=== PATIENT | female | born 1950 | race Caucasian/White ===

== ENCOUNTER 2021-01-03 16:31 | Emergency (ER) | payer BC, MEDICARE, OTHER ==
[2021-01-03 17:04] LABS: EOSINOPHILS % (AUTO) 0.2 %; HCT - HEMATOCRIT 30.5 % (37.0-47.0); HGB - HEMOGLOBIN 10.1 g/dL (12.0-16.0); LYMPHOCYTES # (AUTO) 0.7 10^3/uL (1.5-3.5); LYMPHOCYTES % (AUTO) 11.2 %; MEAN CORPUSCULAR HGB CONC 33.1 g/dL (32.0-36.0); MEAN CORPUSCULAR VOLUME 81.6 fL (81.0-99.0); MEAN PLATELET VOLUME 11.7 fL (7.9-10.8); MONOCYTES # (AUTO) 0.6 10^3/uL (0.0-1.0); NEUTROPHILS # (AUTO) 4.8 10^3/uL (1.5-6.6); NEUTROPHILS % (AUTO) 78.1 %; PLT - PLATELET COUNT 126 10^3/uL (130-450); RED BLOOD COUNT 3.74 10^6/uL (4.20-5.40); RED CELL DISTRIBUTION WIDTH 15.6 % (12.0-15.0); WHITE BLOOD COUNT 6.1 x10^3/uL (4.8-10.8)
[2021-01-03 17:18] LABS: ALBUMIN 3.7 g/dL (3.2-5.5); ALBUMIN/GLOBULIN RATIO 1.1 (1.0-2.2); BILIRUBIN,TOTAL 0.7 mg/dL (0.2-1.0); CALCIUM 8.8 mg/dL (8.5-10.3); CREATININE 1.1 mg/dL (0.4-1.0); POTASSIUM 4.8 mmol/L (3.5-5.0); TOTAL PROTEIN 7.2 g/dL (6.7-8.2)
[2021-01-03 18:43] LABS: BILIRUBIN,URINE NEGATIVE (NEGATIVE); GLUCOSE, URINE (UA) NEGATIVE (NEGATIVE); KETONES,URINE (UA) NEGATIVE (NEGATIVE); LEUKOCYTE ESTERASE, URINE LARGE (NEGATIVE); NITRITE,URINE POSITIVE (NEGATIVE); OCCULT BLOOD,URINE SMALL (NEGATIVE); PROTEIN,URINE TRACE mg/dL (NEGATIVE); UROBILINOGEN,URINE 0.2 (NORMAL) E.U./dL (NORMAL)
[2021-01-03 18:51] LABS: CLARITY,URINE SL. CLOUDY (CLEAR)
[2021-01-03 18:54] LABS: RBC,URINE 0-5 /HPF (0-5); SQUAMOUS EPITHELIAL CELL,UR RARE Squamous (<= Few); WBC,URINE >25 /HPF (0-5)
[2021-01-03 18:55] LABS: BACTERIA,URINE Moderate /HPF (None Seen)
[2021-01-03] MEDS ORDERED: LIDOCAINE 1% 2 ML VIAL MC ONE (19:04)
[2021-01-03] MEDS ORDERED: cefTRIAXone 1 GM VIAL IM STA (19:04)
--- NOTE | 2021-01-03 19:05 | ED Physician Documentation ---
PD HPI ABD PAIN - Stated complaint Stated Complaint: FEVER/FEMALE - Chief complaint Chief Complaint: Abd Pain - History obtained from History obtained from: Patient (This is a helen 70-year-old woman with history of peripheral vascular disease who started running fevers up to 102 starting 2 days ago with a T-max today. She also has urinary burning and frequency. No flank pain though.) Review of Systems Constitutional: reports: Reviewed and negative Eyes: reports: Reviewed and negative Ears: reports: Reviewed and negative Nose: reports: Reviewed and negative PD PAST MEDICAL HISTORY - Past Surgical History Ortho: Amputation Cardiovascular: Coronary stent - Present Medications Home Medications: Ambulatory Orders Medication Instructions Recorded Confirmed Aspirin 81 mg PO DAILY 02/10/19 01/03/21 Atorvastatin Calcium 80 mg PO DAILY 02/10/19 01/03/21 Cholecalciferol (Vitamin D3) 1,000 unit PO DAILY 02/10/19 01/03/21 [Vitamin D3] Fluticasone/Salmeterol [Advair 1 each IH DAILY 02/10/19 01/03/21 250-50 Diskus] Ipratropium/Albuterol [Combivent 20 - 100 mcg IH 1-2XD PRN 02/10/19 01/03/21 Respimat] Melatonin/Pyridoxine [Melatonin 5 5 mg ORAL DAILY PRN MDD 5 02/10/19 01/03/21 mg Tablet] Metoclopramide [Reglan] 5 mg PO DAILY PM 02/10/19 01/03/21 Montelukast [Singulair] 10 mg PO QPM 02/10/19 01/03/21 Multivitamin [Multivitamins] 1 each PO DAILY 02/10/19 01/03/21 Olmesartan Medoxomil 40 mg PO DAILY 02/10/19 01/03/21 [place]-3/Dha/Epa/Fish Oil [Fish Oil 1 each PO DAILY 02/10/19 01/03/21 1,000 mg Softgel] Omeprazole 20 mg PO DAILY 02/10/19 01/03/21 Pregabalin [Lyrica] 200 mg PO BID 02/10/19 01/03/21 Sertraline [Zoloft] 75 mg PO DAILY 02/10/19 01/03/21 amLODIPine [Norvasc] 5 mg PO DAILY 02/10/19 01/03/21 Ciprofloxacin HCl [Cipro] 500 mg PO BID #20 tablet 01/03/21 Sildenafil Citrate [Sildenafil] 20 mg PO TID 01/03/21 01/03/21 - Allergies Allergies/Adverse Reactions: Allergies Allergy/AdvReac Type Severity Reaction Status Date / Time codeine AdvReac Nausea Verified 01/03/21 16:40 - Social History Smoking Status: Never smoker PD ED PE NORMAL - Vitals Vital signs reviewed: Yes - General General: Alert and oriented X 3, No acute distress - Respiratory Respiratory: No respiratory distress, Clear bilaterally - Abdomen Abdomen: Soft, Non tender - Back Back: No CVA TTP - Extremities Extremities: Other (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) - Neuro Neuro: Alert and oriented X 3, Normal speech Results - Vitals Vitals: Vital Signs - 24 hr 01/03/21 01/03/21 01/03/21 16:41 18:44 19:45 Temperature 37.2 C 37.0 C 37.0 C Heart Rate 96 70 74 Respiratory 18 16 14 Rate Blood Pressure 142/53 H 139/56 H 135/69 H O2 Saturation 97 97 97 Oxygen O2 Source Room air - Labs Labs: Laboratory Tests 01/03/21 01/03/21 01/03/21 16:56 16:56 18:31 WBC 6.1 RBC 3.74 L Hgb 10.1 L Hct 30.5 L MCV 81.6 MCH 27.0 MCHC 33.1 RDW 15.6 H Plt Count 126 L MPV 11.7 H Neut # (Auto) 4.8 Lymph # (Auto) 0.7 L Potter # (Auto) 0.6 Eos # (Auto) 0.0 Baso # (Auto) 0.0 Absolute Nucleated RBC 0.00 Nucleated RBC % 0.0 Sodium 128 L Potassium 4.8 Chloride 95 L Carbon Dioxide 23 Anion Gap 10.0 BUN 38 H Creatinine 1.1 H Estimated GFR (MDRD) 49 L Glucose 113 H Calcium 8.8 Total Bilirubin 0.7 AST 21 ALT 24 Alkaline Phosphatase 122 H Total Protein 7.2 Albumin 3.7 Globulin 3.5 Albumin/Globulin Ratio 1.1 Lipase 56 H Urine Color YELLOW Urine Clarity SL. CLOUDY Urine pH 6.0 Ur Specific [place] 1.015 Urine Protein TRACE Urine Glucose (UA) NEGATIVE Urine Ketones NEGATIVE Urine Occult Blood SMALL H Urine Nitrite POSITIVE H Urine Bilirubin NEGATIVE Urine Urobilinogen 0.2 (NORMAL) Ur Leukocyte Esterase LARGE H Urine RBC 0-5 Urine WBC >25 H Ur Squamous Epith Cells RARE Squamous Urine Bacteria Moderate H Ur Microscopic Review INDICATED Urine Culture Comments INDICATED PD MEDICAL DECISION MAKING - ED course ED course: 70-year-old woman presents with urinary symptoms and fever at home. This is concerning for pyelonephritis. Her blood work is reassuring. She is treated with Rocephin here. Departure - Departure Disposition: Home, Self Care Clinical Impression: Pyelonephritis Condition: Good Record reviewed to determine appropriate education?: Yes Instructions: ED Kidney Infec Female Prescriptions: Ciprofloxacin HCl [Cipro] 500 mg PO BID #20 tablet Comments: We will culture your urine, the results should be done in 48-72 hours. If an antibiotic change is necessary we will call you. Return if worse in the meantime, especially if you develop increasing flank pain, fevers, or cannot keep down the medication. Follow-up with your primary care physician in 3 to 5 days for recheck. Discharge Date/Time: 01/03/21 19:45
[2021-01-03 19:50] VITALS: BP 135/69
== END 2021-01-03 19:45 | disposition home or self-care (01) ==
LOC: ED 16:31
DX: N12 Tubulo-interstitial nephritis, not specified as acute or chronic (principal)
CPT/HCPCS: 36415; 80053; 81001; 81003; 83690; 85025; 87086; 87181; 96372; 99283; 99284

== ENCOUNTER 2021-01-17 10:20 | Outpatient (CLI) | payer BC, MEDICARE, OTHER | END 2021-01-17 10:21 | disposition home or self-care (01) | LOC: LAB.N 10:20 | PROVIDERS: ATTEND Internal Medicine | DX: R93.5 Abnormal findings on diagnostic imaging of other abdominal regions, including retroperitoneum (principal); R74.8 Abnormal levels of other serum enzymes; R13.14 Dysphagia, pharyngoesophageal phase; D50.9 Iron deficiency anemia, unspecified; Z53.9 Procedure and treatment not carried out, unspecified reason ==

== ENCOUNTER 2021-01-18 11:00 | Outpatient (CLI) | payer BC, MEDICARE, OTHER ==
[2021-01-18 11:28] LABS: BASOPHILS % (AUTO) 0.2 %; EOSINOPHILS # (AUTO) 0.1 10^3/uL (0.0-0.7); EOSINOPHILS % (AUTO) 1.8 %; HCT - HEMATOCRIT 33.1 % (37.0-47.0); HGB - HEMOGLOBIN 10.5 g/dL (12.0-16.0); LYMPHOCYTES # (AUTO) 0.8 10^3/uL (1.5-3.5); LYMPHOCYTES % (AUTO) 19.2 %; MEAN CORPUSCULAR HEMOGLOBIN 25.9 pg (27.0-31.0); MEAN CORPUSCULAR HGB CONC 31.7 g/dL (32.0-36.0); MEAN CORPUSCULAR VOLUME 81.7 fL (81.0-99.0); MEAN PLATELET VOLUME 11.9 fL (7.9-10.8); MONOCYTES # (AUTO) 0.4 10^3/uL (0.0-1.0); MONOCYTES % (AUTO) 8.7 %; NEUTROPHILS # (AUTO) 3.1 10^3/uL (1.5-6.6); NEUTROPHILS % (AUTO) 69.9 %; PLT - PLATELET COUNT 170 10^3/uL (130-450); RED BLOOD COUNT 4.05 10^6/uL (4.20-5.40); RED CELL DISTRIBUTION WIDTH 15.4 % (12.0-15.0); WHITE BLOOD COUNT 4.4 x10^3/uL (4.8-10.8)
[2021-01-18 11:48] LABS: ALBUMIN 3.9 g/dL (3.2-5.5); ALBUMIN/GLOBULIN RATIO 1.1 (1.0-2.2); BILIRUBIN,TOTAL 0.6 mg/dL (0.2-1.0); CALCIUM 9.1 mg/dL (8.5-10.3); CREATININE 0.7 mg/dL (0.4-1.0); POTASSIUM 4.3 mmol/L (3.5-5.0); TOTAL PROTEIN 7.6 g/dL (6.7-8.2)
== END 2021-01-18 11:01 | disposition home or self-care (01) ==
LOC: LAB 11:00
PROVIDERS: ATTEND Student in an Organized Health Care Education/Training Program
DX: R93.5 Abnormal findings on diagnostic imaging of other abdominal regions, including retroperitoneum (principal); R74.8 Abnormal levels of other serum enzymes; R13.14 Dysphagia, pharyngoesophageal phase; D50.9 Iron deficiency anemia, unspecified
CPT/HCPCS: 36415; 80053; 82728; 83540; 84466; 85025

== ENCOUNTER 2021-01-18 11:08 | Outpatient (CLI) | payer BC, MEDICARE, OTHER ==
[2021-01-18] MEDS ORDERED: IOVERSOL 320 50 ML VIAL ONE (11:14)
[2021-01-18] MEDS ORDERED: IOPAMIDOL-300 100 ML VIAL ONE (11:14)
--- NOTE | 2021-01-18 19:28 | CT Report ---
PROCEDURE: Abdomen/Pelvis W INDICATIONS: ABN US, GB MASS VS SLUDGE CONTRAST: IV CONTRAST: Isovue 300 ml: 100 PO CONTRAST: Optiray 320 ml50 TECHNIQUE: After the administration of oral and IV contrast, 5 mm thick sections acquired from the diaphragms to the symphysis. 5 mm thick coronal and sagittal reformats were acquired. For radiation dose reducti on, the following was used: automated exposure control, adjustment of mA and/or kV according to loretta ent size. COMPARISON: None. FINDINGS: Image quality: Excellent. ABDOMEN: Lung bases: Lung bases are clear. Heart size is normal. There is a small to moderate hiatal hernia . Solid organs: Liver and spleen are normal in size and enhancement. An accessory splenule is incide ntally noted along the hilum of the primary spleen. Gallbladder demonstrates a dependent gallstone, as on series 3 image 28. The anterior gallbladder wall appears mildly thickened, as on series 3 jeb ge 29. Biliary system is non dilated. Pancreas enhances normally. No adrenal nodules. Kidneys demo nstrate normal size and enhancement, without hydronephrosis. Peritoneum and bowel: Bowel loops demonstrate normal wall thickness and caliber. No free fluid or a ir. There is a moderate amount of stool seen within the colon. Nodes and vessels: No retroperitoneal or mesenteric adenopathy by size criteria. Aorta and inferior vena cava are normal in size. Dense atherosclerotic calcification can be seen. Miscellaneous: No ventral hernias. PELVIS: Genitourinary: Bladder wall thickness is normal. The uterus is atrophic. No adnexal masses are seen on either side. Miscellaneous: No inguinal hernias or adenopathy. Bones: No suspicious bony lesions. Moderate dextroconvex scoliosis is seen. No vertebral body compre ssion fractures. There is focal L5-S1 degenerative change. Milder degenerative changes are seen else where. IMPRESSION: The ultrasound referred to in the requisition is not available for review at the time of this dictation. There is at least one dependently layering gallstone seen within the gallbladder. The inferior gallbl adder wall appears mildly thickened. There is a moderate amount of stool seen within the colon. Please correlate with clinical constipatio n. Incidental note is made of: Small to moderate hiatal hernia Accessory splenule Moderate dextroconvex scoliosis Focal L5-S1 degenerative change Reviewed by: Ranjan Avendaño MD on 01/18/2021 6:27 PM AKDT Approved by: Ranjan Avendaño MD on 01/18/2021 6:27 PM RAFI Station ID: [id number]
[2021-01-18] MEDS ORDERED: IOPAMIDOL-300 100 ML VIAL IVP ONE (19:29)
[2021-01-18] MEDS ORDERED: IOVERSOL 320 50 ML VIAL PO ONE (19:30)
== END 2021-01-18 11:09 | disposition home or self-care (01) ==
LOC: DI 11:08
PROVIDERS: ATTEND Student in an Organized Health Care Education/Training Program
DX: K80.20 Calculus of gallbladder without cholecystitis without obstruction (principal); R93.5 Abnormal findings on diagnostic imaging of other abdominal regions, including retroperitoneum; R74.8 Abnormal levels of other serum enzymes; R13.14 Dysphagia, pharyngoesophageal phase; D50.9 Iron deficiency anemia, unspecified
CPT/HCPCS: 36415; 74177; 80053; 82728; 83540; 84466; 85025; Q9967

== ENCOUNTER 2021-08-15 09:44 | Outpatient (CLI) | payer BC, MEDICARE, OTHER ==
[2021-08-15 10:24] LABS: ALBUMIN 3.8 g/dL (3.2-5.5); BILIRUBIN,DIRECT 0.1 mg/dL (0.1-0.5); BILIRUBIN,TOTAL 0.9 mg/dL (0.2-1.0); TOTAL PROTEIN 7.4 g/dL (6.7-8.2)
== END 2021-08-15 09:45 | disposition home or self-care (01) ==
LOC: LAB 09:44
PROVIDERS: ATTEND Student in an Organized Health Care Education/Training Program
DX: R74.8 Abnormal levels of other serum enzymes (principal)
CPT/HCPCS: 36415; 80076

== ENCOUNTER 2021-11-03 09:49 | Outpatient (CLI) | payer BC, MEDICARE, OTHER ==
[2021-11-03 10:30] LABS: ALBUMIN 3.8 g/dL (3.2-5.5); BILIRUBIN,DIRECT 0.1 mg/dL (0.1-0.5); BILIRUBIN,TOTAL 0.6 mg/dL (0.2-1.0); TOTAL PROTEIN 7.3 g/dL (6.7-8.2)
== END 2021-11-03 09:50 | disposition home or self-care (01) ==
LOC: LAB 09:49
PROVIDERS: ATTEND Student in an Organized Health Care Education/Training Program
DX: K74.3 Primary biliary cirrhosis (principal); R93.5 Abnormal findings on diagnostic imaging of other abdominal regions, including retroperitoneum; R74.8 Abnormal levels of other serum enzymes
CPT/HCPCS: 36415; 80076; 83516

== ENCOUNTER 2021-12-30 09:07 | Outpatient (CLI) | payer BC, MEDICARE, OTHER ==
[2021-12-30 09:42] LABS: ALBUMIN 3.6 g/dL (3.2-5.5); BILIRUBIN,TOTAL 0.6 mg/dL (0.2-1.0); CALCIUM 9.3 mg/dL (8.5-10.3); CREATININE 0.9 mg/dL (0.4-1.0); POTASSIUM 4.1 mmol/L (3.5-5.0); TOTAL PROTEIN 7.3 g/dL (6.7-8.2)
== END 2021-12-30 09:08 | disposition home or self-care (01) ==
LOC: LAB 09:07
PROVIDERS: ATTEND Family Medicine
DX: L08.9 Local infection of the skin and subcutaneous tissue, unspecified (principal)
CPT/HCPCS: 36415; 80053; 85651; 86140

== ENCOUNTER 2023-04-21 09:31 | Outpatient (CLI) | payer BC, MEDICARE, OTHER ==
[2023-04-21 11:45] LABS: BILIRUBIN,URINE NEGATIVE (NEGATIVE); GLUCOSE, URINE (UA) NEGATIVE (NEGATIVE); KETONES,URINE (UA) NEGATIVE (NEGATIVE); LEUKOCYTE ESTERASE, URINE NEGATIVE (NEGATIVE); NITRITE,URINE NEGATIVE (NEGATIVE); OCCULT BLOOD,URINE SMALL (NEGATIVE); PH,URINE 5.5 PH (5.0-7.5); PROTEIN,URINE NEGATIVE (NEGATIVE); UROBILINOGEN,URINE 0.2 (NORMAL) E.U./dL (NORMAL)
[2023-04-21 11:46] LABS: EOSINOPHILS # (AUTO) 0.1 10^3/uL (0.0-0.7); EOSINOPHILS % (AUTO) 2.1 %; HCT - HEMATOCRIT 32.2 % (37.0-47.0); HGB - HEMOGLOBIN 10.1 g/dL (12.0-16.0); LYMPHOCYTES # (AUTO) 0.8 10^3/uL (1.5-3.5); LYMPHOCYTES % (AUTO) 22.8 %; MEAN CORPUSCULAR HGB CONC 31.4 g/dL (32.0-36.0); MEAN PLATELET VOLUME 11.8 fL (7.9-10.8); MONOCYTES # (AUTO) 0.3 10^3/uL (0.0-1.0); MONOCYTES % (AUTO) 8.7 %; NEUTROPHILS # (AUTO) 2.2 10^3/uL (1.5-6.6); NEUTROPHILS % (AUTO) 66.1 %; PLT - PLATELET COUNT 113 10^3/uL (130-450); RED BLOOD COUNT 3.88 10^6/uL (4.20-5.40); RED CELL DISTRIBUTION WIDTH 16.6 % (12.0-15.0); WHITE BLOOD COUNT 3.3 x10^3/uL (4.8-10.8)
[2023-04-21 11:55] LABS: BACTERIA,URINE Few /HPF (None Seen); CLARITY,URINE CLEAR (CLEAR); RBC,URINE 0-5 /HPF (0-5); SQUAMOUS EPITHELIAL CELL,UR FEW Squamous (<= Few); WBC,URINE 0-3 /HPF (0-5)
[2023-04-21 12:07] LABS: ALBUMIN/GLOBULIN RATIO 1.3 (1.0-2.2); BILIRUBIN,TOTAL 0.4 mg/dL (0.2-1.0); CALCIUM 9.4 mg/dL (8.5-10.3); CRP - C-REACTIVE PROTEIN 0.8 mg/dL (<0.5); POTASSIUM 4.2 mmol/L (3.5-4.5)
[2023-04-21 12:13] LABS: THYROID STIMULATING HORMONE 2.58 uIU/mL (0.34-5.60)
== END 2023-04-21 09:32 | disposition home or self-care (01) ==
LOC: LAB.N 09:31
PROVIDERS: ATTEND Internal Medicine Rheumatology
DX: M34.1 CR(E)ST syndrome (principal); D61.818 Other pancytopenia
CPT/HCPCS: 36415; 80053; 81001; 84443; 85025; 85651; 86140; 87086

== ENCOUNTER 2023-05-11 08:00 | Outpatient (CLI) | payer BC, MEDICARE, OTHER | END 2023-05-11 23:59 | disposition home or self-care (01) | LOC: LAB.N 08:00 | PROVIDERS: ATTEND Physician Assistant Medical | DX: L03.115 Cellulitis of right lower limb (principal) | CPT/HCPCS: 87070; 87205 ==

== ENCOUNTER 2023-07-08 14:26 | Outpatient (CLI) | payer BC, MEDICARE, OTHER ==
[2023-07-08 15:04] LABS: THYROID STIMULATING HORMONE 1.53 uIU/mL (0.34-5.60)
[2023-07-08 15:17] LABS: ALBUMIN/GLOBULIN RATIO 1.3 (1.0-2.2); ALKALINE PHOSPHATASE 80 IU/L (42-121); ALT ALANINE AMINOTRANSFERASE 12 IU/L (10-60); AST ASPARTATE AMINOTRANSFERASE 17 IU/L (10-42); BILIRUBIN,TOTAL 0.5 mg/dL (0.2-1.0); BUN - BLOOD UREA NITROGEN 20 mg/dL (6-20); CALCIUM 9.2 mg/dL (8.5-10.3); CARBON DIOXIDE - CO2 26 mmol/L (21-32); CHLORIDE 102 mmol/L (101-111); CHOL/HDL RATIO 2.9 (<4.4); CHOLESTEROL 139 mg/dL; GFR - MDRD 55 (>89); GLUCOSE 84 mg/dL (74-104); HDL CHOLESTEROL 48 mg/dL; LDL CHOLESTEROL,CALCULATED 70 mg/dL; LDL/HDL RATIO 1.5 (<4.4); POTASSIUM 4.3 mmol/L (3.5-4.5); SODIUM 135 mmol/L (135-145); TOTAL PROTEIN 7.1 g/dL (6.4-8.9); TRIGLYCERIDES 104 mg/dL (48-352); VLDL CHOLESTEROL 21 mg/dL
== END 2023-07-08 14:27 | disposition home or self-care (01) ==
LOC: LAB 14:26
PROVIDERS: ATTEND Physician Assistant
DX: E78.2 Mixed hyperlipidemia (principal); R79.89 Other specified abnormal findings of blood chemistry; D50.8 Other iron deficiency anemias; A41.9 Sepsis, unspecified organism
CPT/HCPCS: 36415; 80053; 80061; 82306; 83721; 84443

== ENCOUNTER 2023-10-20 10:55 | Emergency (ER) | payer BC, MEDICARE, OTHER ==
[2023-10-20 11:10] VITALS: BP 149/66; O2SAT 98
--- NOTE | 2023-10-20 11:37 | ED Physician Documentation ---
PD HPI OPHTHO - Stated complaint Stated Complaint: BILAT EYE OOZING/PX - Chief complaint Chief Complaint: Heent - History obtained from History obtained from: Patient - History of Present Illness Timing - onset: How many weeks ago (2.5) Timing - duration: Weeks Timing - details: Gradual onset, Still present (had itching and watering of eyes that has persisted with matting and some discharge. No visual changes. Eyes irritated for prolonged use and outdoors. [facility]en [facility] and Rx Polymixin antibiotic drops. Has been using them a week without any notable improvement and now worse the past 1-2 days.) Location: Both (initially left and then right as well within day or so.) Associated symptoms: Redness, Discharge, Matting, Other (having now nasal congestion and feeling of sinus pressure with drainage that is yellow.). No: Decreased vision Contributing factors: No: Exposed to conjunctivitis Similar symptoms before: Has not had sx before Recently seen: Clinic Review of Systems Constitutional: denies: Fever, Chills Nose: reports: Congestion, Sinus pressure / pain (the past several days) Throat: denies: Sore throat Respiratory: denies: Cough PD PAST MEDICAL HISTORY - Past Medical History Cardiovascular: Hypertension, High cholesterol, Coronary artery disease Respiratory: Asthma GI: GERD - Past Surgical History Past Surgical History: Yes General: Appendectomy Ortho: Amputation Cardiovascular: Coronary stent - Present Medications Home Medications: Ambulatory Orders Medication Instructions Recorded Confirmed Aspirin 81 mg PO DAILY 02/10/19 10/20/23 Cholecalciferol (Vitamin D3) 1,000 unit PO DAILY 02/10/19 10/20/23 [Vitamin D3] Ipratropium/Albuterol [Combivent 20 - 100 mcg IH 1-2XD PRN 02/10/19 10/20/23 Respimat] Melatonin/Pyridoxine [Melatonin 5 5 mg ORAL DAILY PRN MDD 5 02/10/19 10/20/23 mg Tablet] Metoclopramide [Reglan] 5 mg PO DAILY PM 02/10/19 10/20/23 Montelukast [Singulair] 10 mg PO QPM 02/10/19 10/20/23 Multivitamin [Multivitamins] 1 each PO DAILY 02/10/19 10/20/23 Omeprazole 20 mg PO DAILY 02/10/19 10/20/23 Pregabalin [Lyrica] 200 mg PO BID 02/10/19 10/20/23 Sertraline [Zoloft] 75 mg PO DAILY 02/10/19 10/20/23 amLODIPine [Norvasc] 5 mg PO DAILY 02/10/19 10/20/23 Sildenafil Citrate [Sildenafil] 20 mg PO BID 01/03/21 10/20/23 Acetaminophen [Aphen] 325 mg PO Q6HR PRN 12/07/22 10/20/23 Atorvastatin [Lipitor] 20 mg PO QPM 08/19/23 10/20/23 Budesonide/Formoterol Fumarate 1 - 2 puffs INH DAILY 08/19/23 10/20/23 [Symbicort 160-4.5 Mcg Inhaler] Olmesartan Medoxomil [Benicar] 1 tab PO DAILY 08/19/23 10/20/23 Zinc Gluconate [Zinc] 30 mg PO DAILY 08/19/23 10/20/23 Amoxicillin 500 mg PO TID #15 cap 10/20/23 Ketotifen Fumarate [Eye Itch 2 drops RIGHTEYE QID PRN #5 ml 10/20/23 Relief] Tobramycin/Dexamethasone [Tobradex 2 drops EACHEYE QID 5 Days #10 ml 10/20/23 Eye Drops] - Allergies Allergies/Adverse Reactions: Allergies Allergy/AdvReac Type Severity Reaction Status Date / Time codeine AdvReac Nausea Verified 10/20/23 11:07 - Social History Does the pt smoke?: No Smoking Status: Never smoker Does the pt have substance abuse?: No PD ED PE NORMAL - Vitals Vital signs reviewed: Yes - General General: Alert and oriented X 3, No acute distress, Well developed/nourished - HEENT HEENT: PERRL, EOMI, Ears normal, Pharynx benign - Neck Neck: Supple, no meningeal sign, No adenopathy PD ED PE EXPANDED - Eyes Eyes: Injected conj/sclera, Exudate (some thicker materail along eyelashes and lid margins. ), Anterior chambers clear, Normal fundi, Other (feels better with proparacaine drops here in ED. ). No: Corneal ulcer, Fluorescein uptake Results - Vitals Vitals: Oxygen O2 Source Room air PD Medical Decision Making - ED course Complexity details: considered differential (persistent conjunctival irritation and matting, increasing despite Polymixin drops from [facility]. Pt to me states allergy to Bactrim, not listed on Email [employer]. Consider some persisting irritation from drops. But now also sinusitis symptoms. Will change drops and add antihistamine. Abx orally for sinus.), d/w patient Departure - Departure Disposition: 01 Home, Self Care Clinical Impression: Conjunctivitis, acute, bilateral Qualifiers: Acute conjunctivitis type: unspecified Qualified Code(s): H10.33 - Unspecified acute conjunctivitis, bilateral Sinusitis Qualifiers: Sinusitis location: maxillary Chronicity: acute Recurrence: non-recurrent Qualified Code(s): J01.00 - Acute maxillary sinusitis, unspecified Condition: Stable Record reviewed to determine appropriate education?: Yes Instructions: ED Conjunctivitis Nonspecific Follow-Up: Mary Jane Rankin PA-C [Primary Care Provider] - Prescriptions: Amoxicillin 500 mg PO TID #15 cap Ketotifen Fumarate [Eye Itch Relief] 2 drops RIGHTEYE QID PRN #5 ml PRN Reason: Itching Tobramycin/Dexamethasone [Tobradex Eye Drops] 2 drops EACHEYE QID 5 Days #10 ml Comments: Given the persistence of your eye irritation and discharge, we can change antibiotic drops. Discontinue the current ones and change to the new tobramycin. There may be just some inflammatory or allergy component to it as well so we will also add ketotifen antihistamine eyedrops 4 times daily. Your symptoms of the sinus congestion and discharge do suggest possibly transmission of an infection into the sinuses and we can also treat with an oral antibiotic. I sent them to your preferred pharmacy. Recheck if not improved well over the next several days and resolved by 3 to 5 days. It is okay to continue with ibuprofen or Tylenol orally for discomfort. Forms: PCP List Discharge Date/Time: 10/20/23 12:25
[2023-10-20] MEDS: AMOXICILLIN 250 MG CAPSULE PO STA (12:21)
== END 2023-10-20 12:25 | disposition home or self-care (01) ==
LOC: ED 10:55
DX: H10.33 Unspecified acute conjunctivitis, bilateral (principal); J01.00 Acute maxillary sinusitis, unspecified; Z88.2 Allergy status to sulfonamides
CPT/HCPCS: 99283; A9270

== ENCOUNTER 2023-11-10 16:06 | Outpatient (CLI) | payer BC, MEDICARE, OTHER ==
--- NOTE | 2023-11-10 17:12 | XRAY Report ---
PROCEDURE: Knee 3V RT INDICATIONS: OSTEOMYELITIS RIGHT KNEE TECHNIQUE: 4 views of the knee(s) were acquired. COMPARISON: None. FINDINGS: Bones: Patient is status post BKA . Bones are severely osteopenic. A distal femoral fixation plate i s noted. No hardware fracture or loosening. No acute fracture or dislocation. No suspicious bony lesi ons. No cortical thinning at the amputation site of the tibia and fibula. Soft tissues: No knee joint effusion. No suspicious soft tissue calcifications or masses. IMPRESSION: No cortical abnormalities to suggest acute osteomyelitis. However, plain film is less sensitive in th e acute phases of osteomyelitis. If there is high clinical suspicion for osteomyelitis, nuclear medic ine bone scan could be used. Reviewed by: Kaci Blair MD on 11/10/2023 5:11 PM PDT Approved by: Kaci Blair MD on 11/10/2023 5:11 PM PDT Station ID: [id number]
== END 2023-11-10 16:07 | disposition home or self-care (01) ==
LOC: DI 16:06
PROVIDERS: ATTEND Family Medicine
DX: L08.9 Local infection of the skin and subcutaneous tissue, unspecified (principal); M70.41 Prepatellar bursitis, right knee; T87.89 Other complications of amputation stump; I73.9 Peripheral vascular disease, unspecified

== ENCOUNTER 2023-11-24 15:56 | Outpatient (CLI) | payer BC, MEDICARE, OTHER ==
--- NOTE | 2023-11-24 16:25 | XRAY Report ---
PROCEDURE: Chest 2V INDICATIONS: ASTHMA TECHNIQUE: 2 views of the chest were acquired. COMPARISON: None. FINDINGS: Surgical changes and devices: None. Lungs and pleura: No pleural effusions or pneumothorax. Lungs are clear. Mediastinum: Mediastinal contours appear normal. Heart size is normal. Bones and chest wall: No suspicious bony lesions. Overlying soft tissues appear unremarkable. IMPRESSION: No acute cardiopulmonary process. Reviewed by: Pola Preciado MD on 11/24/2023 4:24 PM PDT Approved by: Pola Preciado MD on 11/24/2023 4:24 PM PDT Station ID: [id number]
== END 2023-11-24 15:57 | disposition home or self-care (01) ==
LOC: DI 15:56
PROVIDERS: ATTEND Internal Medicine Critical Care Medicine
DX: J45.909 Unspecified asthma, uncomplicated (principal)

== ENCOUNTER 2023-12-03 11:06 | Outpatient (CLI) | payer BC, MEDICARE, OTHER ==
[2023-12-03 11:45] LABS: CALCIUM 9.4 mg/dL (8.5-10.3); CREATININE 0.8 mg/dL (0.6-1.3); POTASSIUM 4.6 mmol/L (3.5-4.5)
== END 2023-12-03 11:07 | disposition home or self-care (01) ==
LOC: LAB 11:06
DX: E87.1 Hypo-osmolality and hyponatremia (principal)
CPT/HCPCS: 36415; 80048

== ENCOUNTER 2023-12-07 17:00 | Emergency (ER) | payer BC, MEDICARE, OTHER ==
[2023-12-07 17:38] VITALS: O2SAT 98
[2023-12-07 18:46] LABS: CALCIUM 9.6 mg/dL (8.5-10.3); CREATININE 0.8 mg/dL (0.6-1.3); POTASSIUM 3.9 mmol/L (3.5-4.5)
--- NOTE | 2023-12-07 18:57 | ED Physician Documentation ---
History of Present Illness - Stated complaint Stated Complaint: LOW SODIUM - Chief complaint Chief Complaint: General - History obtained from History obtained from: Patient - Additonal information Additional information: 73-year-old female with history of hyponatremia presents for sodium check. Recently hospitalized for hyponatremia in the 120s. Patient has an appointment tomorrow with primary care, however family was concerned and anxious about sodium so they came to the ER for a check. Patient has been fluid restricting and using beef broth in order to raise sodium. They have a pending end ocrinology appointment next month. Patient has otherwise been in her usual state of health and denies any new complaints today. Review of Systems Constitutional: denies: Fever, Chills Respiratory: denies: Dyspnea, Cough GI: denies: Abdominal Pain, Nausea, Vomiting Neurologic: denies: Generalized weakness, Focal weakness, Numbness PD PAST MEDICAL HISTORY - Past Medical History Past Medical History: Yes Cardiovascular: Hypertension, High cholesterol, Coronary artery disease, [place] Respiratory: Asthma GI: GERD - Past Surgical History Past Surgical History: Yes General: Appendectomy Ortho: Amputation Cardiovascular: Coronary stent - Present Medications Home Medications: Ambulatory Orders Medication Instructions Recorded Confirmed Aspirin 81 mg PO DAILY 02/10/19 12/07/23 Cholecalciferol (Vitamin D3) 1,000 unit PO DAILY 02/10/19 12/07/23 [Vitamin D3] Ipratropium/Albuterol [Combivent 20 - 100 mcg IH 1-2XD PRN 02/10/19 12/07/23 Respimat] Melatonin/Pyridoxine [Melatonin 5 5 mg ORAL DAILY PRN MDD 5 02/10/19 12/07/23 mg Tablet] Metoclopramide [Reglan] 5 mg PO DAILY PM 02/10/19 12/07/23 Montelukast [Singulair] 10 mg PO QPM 02/10/19 12/07/23 Multivitamin [Multivitamins] 1 each PO DAILY 02/10/19 12/07/23 Omeprazole 20 mg PO DAILY 02/10/19 12/07/23 Pregabalin [Lyrica] 200 mg PO BID 02/10/19 12/07/23 Sertraline [Zoloft] 75 mg PO DAILY 02/10/19 12/07/23 amLODIPine [Norvasc] 5 mg PO DAILY 02/10/19 12/07/23 Acetaminophen [Aphen] 325 mg PO Q6HR PRN 12/07/22 12/07/23 Atorvastatin [Lipitor] 20 mg PO QPM 08/19/23 12/07/23 Budesonide/Formoterol Fumarate 1 - 2 puffs INH DAILY 08/19/23 12/07/23 [Symbicort 160-4.5 Mcg Inhaler] Olmesartan Medoxomil [Benicar] 1 tab PO DAILY 08/19/23 12/07/23 Zinc Gluconate [Zinc] 30 mg PO DAILY 08/19/23 12/07/23 Amoxicillin 875 mg PO BID 14 Days #28 tablet 11/11/23 12/07/23 - Allergies Allergies/Adverse Reactions: Allergies Allergy/AdvReac Type Severity Reaction Status Date / Time codeine AdvReac Nausea Verified 12/07/23 17:24 nifedipine AdvReac Unknown Verified 12/07/23 17:24 - Social History Does the pt smoke?: No Smoking Status: Never smoker Does the pt drink ETOH?: No Does the pt have substance abuse?: No - Immunizations Immunizations are current?: Yes - POLST Patient has POLST: No PD ED PE NORMAL - Vitals Vital signs reviewed: Yes - General General: Alert and oriented X 3, No acute distress, Well developed/nourished - Cardiac Cardiac: RRR, Strong equal pulses - Derm Derm: Normal color, Warm and dry, No rash - Neuro Neuro: Alert and oriented X 3, 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, No motor deficit, Normal speech Results - Vitals Vitals: Vital Signs - 24 hr 12/07/23 12/07/23 17:25 19:31 Temperature 36.6 C 36.5 C Heart Rate 75 70 Respiratory 18 18 Rate Blood Pressure 182/65 H 160/66 H O2 Saturation 98 98 Oxygen O2 Source Room air - Labs Labs: Laboratory Tests 12/07/23 18:24 Sodium 132 L Potassium 3.9 Chloride 96 L Carbon Dioxide 30 Anion Gap 6.0 BUN 16 Creatinine 0.8 Estimated GFR (MDRD) 70 L Glucose 94 Calcium 9.6 PD Medical Decision Making - ED course Complexity details: reviewed old records, reviewed results, considered differential, d/w patient, d/w family ED course: Patient presenting for sodium check. Last sodium 127. On BMP today sodium is 132. Patient and happy with results and will follow-up with Tomorrow Departure - Departure Disposition: 01 Home, Self Care Clinical Impression: Hyponatremia Condition: Stable Instructions: ED Hyponatremia Comments: Your sodium today was 132. Continue to follow the same measures you have been taking at home. Follow-up with your specialists as scheduled. Forms: PCP List Discharge Date/Time: 12/07/23 19:31
[2023-12-07 19:31] VITALS: BP 160/66
== END 2023-12-07 19:31 | disposition home or self-care (01) ==
LOC: ED 17:00
DX: E87.1 Hypo-osmolality and hyponatremia (principal)
CPT/HCPCS: 36415; 80048; 99283